=== PATIENT | female | born 1975 | race Caucasian/White ===

== ENCOUNTER → 2019-09-01 11:47 | Outpatient (CLI) | payer OTHER, SELFPAY ==
[2019-09-01 13:05] LABS: Basophils # 0.1 K/mm3 (0-0.2); Basophils % 0.6 % (0.1-2.0); Eosinophils # 0.5 K/mm3 (0.0-0.4); Hematocrit 46.6 % (37.0-47.0); Hemoglobin 15.3 g/dL (12.2-16.2); Lymphocytes # 2.6 K/mm3 (0.7-4.5); Lymphocytes % 15.5 % (10-50); Mean Corpuscular HGB Conc 32.8 g/dL (31.8-35.4); Mean Corpuscular Hemoglobin 29.9 pg (27.0-31.2); Mean Corpuscular Volume 91.3 fl (81-99); Mean Platelet Volume 7.6 fl (7.4-10.4); Monocytes # 0.7 K/mm3 (0.1-1.0); Neutrophils # 12.6 K/mm3 (1.8-7.8); Neutrophils % 76.9 % (37.0-80.0); Platelet Count 317 K/mm3 (142-424); Red Cell Distribution Width 12.9 % (11.5-17.5); White Blood Count 16.4 K/mm3 (4.8-10.8)
[2019-09-01 13:17] LABS: MANUAL DIFFERENTIAL MANUAL DIFFERENTIAL (MANUAL DIFF)
[2019-09-01 14:28] LABS: Alanine Aminotransferase 26 U/L (12-78); Albumin Level 4.1 gm/dL (3.4-5.0); Albumin/Globulin Ratio 1.1 (1.1-1.8); Alkaline Phosphatase 77 U/L (46-116); Anion Gap 18.2 mEq/L (5-15); Aspartate Amino Transferase 11 U/L (15-37); Bilirubin,Total 0.3 mg/dL (0.2-1.0); Blood Urea Nitrogen 11 mg/dL (7-18); Calcium 9.4 mg/dL (8.5-10.1); Carbon Dioxide 23 mmol/L (21.0-32.0); Chloride 104 mmol/L (98-107); Creatinine,Serum 0.83 mg/dL (0.55-1.02); Estimated Glomerular Filt Rate 76 ml/min (>60); Free Thyroxine Index 4.3 ug/dL (5.93-13.13); GFR (African American) 92 ML/MIN (>60); Globulin 3.9 gm/dl (1.3-3.2); Glucose 110 mg/dL (74-106); Potassium 4.2 mmoL/L (3.5-5.1); Sodium 141 mmol/L (136-145); T4 (Thyroxine) 13.8 ug/dl (4.7-13.3); Thyroid Stimulating Hormone 5.74 uIU/ml (0.358-3.740); Triiodothryronine (T3) Uptake 31 % (31-39)
[2019-09-01 14:37] LABS: Eosinophils % 1 % (0-3); Lymphocytes % 19 % (10-50); Monocytes % 3 % (2-9); Neutrophils % 76 % (42-76); Platelet Estimate Normal; RBC Morphology Normal; Total Cells Counted 100
== END ==
LOC: LAB 11:48
PROVIDERS: Visit Provider Nurse Practitioner Obstetrics & Gynecology
DX: N92.6 Irregular menstruation, unspecified (principal)
CPT/HCPCS: 36415; 80053; 84436; 84443; 84479; 85007; 85025

== ENCOUNTER → 2019-09-03 10:19 | Outpatient (CLI) | payer OTHER, SELFPAY ==
--- NOTE | 2019-09-03 10:22 | US_ITS ---
PROCEDURE: US TRANSVAGINAL CLINICAL INDICATION: US T/V- Abnormal bleeding COMPARISON: No exams were available for comparison FINDINGS: The uterus is enlarged at 10.5 x 6 x 5.2 cm with a combined endometrial thickness of 17 mm. There is a large nabothian cyst measuring 2.3 cm. The left ovary is 4.3 by 2.9 cm with several cysts the largest of which is 2 cm. The right ovary is 3 x 2 cm with an unremarkable appearance. IMPRESSION: Enlarged uterus with thickened endometrium with a prominent nabothian cyst and small left ovarian cysts Dictated by: Anant Jimenez MD 09/03/2019 16:43 Electronically signed by Anant Jimenez MD in [place] 09/03/2019 16:43
== END ==
PROVIDERS: Visit Provider Nurse Practitioner Obstetrics & Gynecology
DX: N93.9 Abnormal uterine and vaginal bleeding, unspecified (principal)
CPT/HCPCS: 76830